=== PATIENT | male | born 1970 | race Caucasian/White ===

== ENCOUNTER 2018-05-24 05:45 | Inpatient (IN) | payer OTHER ==
[2018-05-18 17:07] VITALS: BMI 40.2
--- NOTE | 2018-05-18 18:20 | PREOPHP ---
DATE OF ADMISSION: 05/24/2018 The patient will have surgery with Dr. Francois Lucia on 05/24/2018. REASON FOR CONSULTATION: Consultation requested by Dr. Francois Lucia for medical evaluation and clearance of a 47-year-old gentleman about to undergo surgery. Thank you, Dr. Lucia, for allowing us to participate in the care of this patient. 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 PAST MEDICAL AND SURGICAL HISTORY: His only medical hospitalization actually overnight was for back pain. Other than that, he has had no medical hospitalizations and his other surgeries have included a right inguinal hernia repair and umbilical hernia repair. Other than that, he has had no major medical encounters and has not broken any big bones. ALLERGIES: HE IS NOT ALLERGIC TO ANY MEDICATIONS. MEDICATIONS: Only medicine he had taken was Celebrex which he has stopped prior to his surgery. SOCIAL HISTORY: The patient is , has 2 sons. He does not smoke. Alcohol socially. Does drink coffee. Has no difficulty sleeping at night and is a performance specialist. FAMILY HISTORY: Both parents are alive. Father is 72, mother is 70, both in good health. One sister in good health. There is family history of diabetes. He knows of no heart cancer, hypertension or stroke in the family. REVIEW OF SYSTEMS: HEENT: Periodic headaches. CARDIORESPIRATORY: Denies any chest pain or shortness of breath. GASTROINTESTINAL: No melena or hematemesis; however has had a couple of episodes of diverticulitis. GENITOURINARY: No urgency, frequency. MUSCULOSKELETAL: Positive for back pain. NEUROPSYCHIATRIC: Unremarkable. GENERAL HEALTH: As above. PHYSICAL EXAMINATION: VITAL SIGNS: The patient's blood pressure was 128/82, pulse was 80 and regular, respirations were 18, temperature 99, height of 5 feet, 9 inches and weight 272 pounds. GENERAL: The patient was noted to be a well-developed, well-nourished male, alert and cooperative, in no apparent acute distress, oriented to time, place and person. HEENT: Head was atraumatic. Eyes: Pupils were equal, reactive to light and accommodation. Fundi were benign. Tympanic membranes were unremarkable. Nose was negative. Mouth was unremarkable. Fair oral hygiene was present. NECK: Supple without any rigidity. Trachea was midline. Thyroid was within normal limits. Neck veins were flat. Carotid pulses were equal. No bruits were heard. BACK: Unremarkable. CHEST: Symmetrical. BREASTS AND AXILLARY: Did not reveal any masses. LUNGS: Clear to percussion and auscultation. HEART: PMI was the fifth intercostal space at the midclavicular line. A regular sinus rhythm was noted. No significant murmurs, rubs or gallops being elicited. ABDOMEN: Soft. Good bowel sounds were noted. No significant organomegaly, masses or tenderness. GENITALIA: Normal male external genitalia. RECTAL AND PROSTATIC: Per PCP. EXTREMITIES: Did not reveal any clubbing, edema or cyanosis. Peripheral pulses were physiologic. SKIN: Moist and warm without any eruptions. No gross lymphadenopathy was noted. NEUROLOGIC: Grossly intact. IMPRESSION: 1. Lumbar herniated disk. 2. Metabolic syndrome. 3. Stable health. REVIEW OF LABORATORY AND OTHER DATA: Revealed the following: The patient's chemistry panel revealed normal electrolytes. Random glucose 108. BUN, creatinine, uric acid, calcium, protein, liver function test, magnesium, CBC, UA, PT and PTT were normal. The patient's EKG revealed a right bundle branch block which according to patient has been there as long as he has known. His chest x-ray revealed degenerative joint disease, mild elevation of his left hemidiaphragm, no acute infiltrates were there any acute cardiopulmonary changes being noted. Bladder residual postvoid was 63, which little higher than one would like to see but not terribly so. Dr. Lucia, I see no contraindication to this patient undergoing current proposed surgery under desired form of anesthesia. I feel he is a suitable candidate at this particular point in time and we will be more than happy to follow him up with you during his stay at [facility]. Thank you again, Dr. Lucia, for allowing us to participate in the care of this patient. Dictated By: CHAMP BUENO MD SS/NTS Conf#: [id number] DID#: [id number] CC: FRANCOIS LUCIA MD;*EndCC* MTDD
[2018-05-24] VITALS (18 sets, daily range): BP systolic 95–133; BP diastolic 52–76; PULSE 46–64; RESP 14–20; Ht 175.3 cm; Wt 121.8 kg
[~2018-05-24] VITALS: Ht 175.3 cm; Wt 121.8 kg
[2018-05-24] MEDS ORDERED: LACTATED RINGER'S 1,000 ML IV* SCH (06:00)
[2018-05-24] MEDS ORDERED: CEFAZOLIN 2 GM/50 ML (PMX) 50 ML IVPB ONE (06:00)
--- NOTE | 2018-05-24 06:49 | PREAC ---
Date/Time of Note Date/Time of Note DATE: 05/24/18 TIME: 06:45 Anesthesia Eval and Record Evaluation Time Pre-Procedure Interview DATE: 05/24/18 TIME: 06:45 Age 47 Sex male NPO: 8 hrs Preoperative diagnosis herniated disc left L4-L5 Planned procedure lumbar microdiscectomy L4-L5 left Past Medical History Past Medical History: Includes GI: Morbid obesity, Other (diverticulosis) Surgery & Anesthesia Issues No known issue Meds Anticoagulation: No Beta Radha within 24 hr: No Reason Beta Radha not given: Pt. not on B-Radha Current Medications Lactated Ringer's 1,000 ml @ 25 mls/hr Q24H IV* ; Start 05/24/18 at 06:00; Stop 05/25/18 at 21:59 Meds reviewed: Yes Allergies Coded Allergies: No Known Drug Allergies (Unverified Allergy, Unknown, 05/21/18) Allergies Reviewed: Yes Labs/Studies Labs Reviewed: Reviewed by anesthesiologist Blood Bank Test 05/24/18 06:10 Blood Product Summary Counts test: N/A Studies: ECG (SR RBBB), CXR Pre-procedure Exam Airway: Adequate mouth opening, Adequate thyromental dist Mallampati: Mallampati II Teeth: Normal Lung: Normal Heart: Normal ASA Physical Status ASA physical status: 3 Emergency: None Planned Anesthetic General/MAC: ETT Planned Pain Management Parenteral pain med Pre-operative Attestations Prior to commencing anesthesia and surgery, the patient was re-evaluated, there was verification of: *The patient's identity *The results of appropriate recent lab work and preoperative vital signs *The above evaluation not changing prior to induction *Anesthetic plan, risk benefits, alternative and complications discussed with patient/family; questions answered; patient/family understands, accepts and wishes to proceed. HILDA ORDONEZ MD May 24, 2018 06:49
[2018-05-24] MEDS ORDERED: CELE200C PO (06:55)
[2018-05-24] MEDS ORDERED: PROPOFOL 20 ML ONE ×2 (07:04→07:47)
[2018-05-24] MEDS ORDERED: SUCCINYLCHOLINE CHLORIDE 100 MG/5 ML SYG IV ONE (07:04)
[2018-05-24] MEDS ORDERED: MIDAZOLAM 1 MG/ML 2 ML INJ ONE (07:04)
[2018-05-24] MEDS ORDERED: LIDOCAINE 2% (SDV) 5 ML INJ ONE (07:04)
[2018-05-24] MEDS ORDERED: FENTAnyl 50 MCG/ML VIAL ONE (07:04)
[2018-05-24] MEDS ORDERED: ROCURONIUM 50 MG INJ ONE ×2 (07:04→07:47)
--- NOTE | 2018-05-24 07:05 | HPN ---
Date/Time of Note Date/Time of Note DATE: 05/24/18 TIME: 07:05 Interval H&P Admission Note Pt. seen H&P reviewed: No system changes GUERLINE LUCIA MD May 24, 2018 07:05
[2018-05-24] MEDS ORDERED: PHENYLephrine (100 MCG/ML) 5ML SYG ONE (07:45)
[2018-05-24] MEDS ORDERED: BUPIVACAINE 0.25% (MPF) 30 ML INJ ONE (07:50)
[2018-05-24] MEDS ORDERED: GELATIN SIZE 100 SPONGE ONE (07:50)
[2018-05-24] MEDS ORDERED: CEFAZOLIN 1 GM INJ ONE (07:50)
[2018-05-24] MEDS ORDERED: POLYMYXIN/BACITRACIN 1L IRRIG ONE (07:50)
[2018-05-24] MEDS ORDERED: THROMBIN (BOVINE) 5,000 UNIT VIAL TP ONE (07:50)
[2018-05-24] MEDS ORDERED: DEXAMETHASONE 4 MG/ML 5 ML INJ ONE (07:56)
[2018-05-24] MEDS ORDERED: FAMOTIDINE 20 MG INJ ONE (07:56)
[2018-05-24] MEDS ORDERED: ONDANSETRON 4 MG INJ ONE (07:56)
[2018-05-24] MEDS ORDERED: SURGIFOAM POWDER 1 GM KIT ONE (08:29)
[2018-05-24] MEDS ORDERED: DIPHENHYDRAMINE 50 MG INJ IV PRN (08:30)
[2018-05-24] MEDS ORDERED: LABETALOL HCL 20MG INJ IV PRN (08:30)
[2018-05-24] MEDS ORDERED: OXYCODONE/ACETAMINOPHEN (5/325) TAB PO PRN ×4 (08:30→09:30)
[2018-05-24] MEDS ORDERED: hydrALAzine 20 MG INJ IV PRN (08:30)
[2018-05-24] MEDS ORDERED: ONDANSETRON 4 MG INJ IV PRN ×2 (08:30→09:30)
[2018-05-24] MEDS ORDERED: FENTAnyl 50 MCG/ML VIAL IV PRN ×3 (08:30)
[2018-05-24] MEDS ORDERED: MEPERIDINE 25 MG INJ IV PRN (08:30)
[2018-05-24] MEDS ORDERED: HYDROmorphONE 1 MG/5 ML IV SYRINGE IV PRN ×3 (08:30)
[2018-05-24] MEDS ORDERED: PROCHLORPERAZINE 10 MG INJ IV PRN (08:30)
[2018-05-24] MEDS ORDERED: HYDROmorphONE 2 MG/ML SYG ONE (08:42)
--- NOTE | 2018-05-24 09:15 | PAC ---
Date/Time of Note Date/Time of Note DATE: 05/24/18 TIME: 09:14 Post-Anesthesia Notes Post-Anesthesia Note Last documented vital signs Vital Signs Date Temp Pulse Resp B/P (MAP) Pulse Ox O2 O2 Flow FiO2 Time Delivery Rate 05/24/18 98.1 64 18 133/76 96 07:11 (95) Activity: WNL Respiratory function: WNL Cardiovascular function: WNL Mental status: Baseline Pain reasonably controlled: Yes Hydration appropriate: Yes Nausea/Vomiting absent: Yes Comments BP: 104/50 HR: 60 RR: 15 T: 98.4 SaO2: 98% HILDA ORDONEZ MD May 24, 2018 09:15
--- NOTE | 2018-05-24 09:28 | SIPON ---
Date/Time of Note Date/Time of Note DATE: 05/24/18 TIME: 09:25 Operative Report Preoperative Diagnosis HNP L4-5 left Postoperative Diagnosis same Operation/Procedure Performed Left hemilaminotomy L4 Microdiscectomy L4-5 on the left Medial facetectomy and foraminotomy L4-5 on the left Cosmetic wound closure (2.6 cm) Lateral localizing lumbar radiographs (2) Intraoperative nerve monitoring (2-1/2 hours) Surgeon see signature line assistant golf course superintendent Vane Go PA-C Anesthesia: general Estimated blood loss: 10 - 50 ml's Transfusion Required none Specimen Disk L4-5 Grafts/Implants none Complications none GUERLINE LUCIA MD May 24, 2018 09:28
--- NOTE | 2018-05-24 11:40 | OPR ---
DATE OF OPERATION: 05/24/2018 PREOPERATIVE DIAGNOSIS: Herniated disk, L4-L5 on the left. POSTOPERATIVE DIAGNOSIS: Herniated disk, L4-5 on the left. OPERATION PERFORMED: 1. Left hemilaminotomy, L4. 2. Microdiskectomy, L4-5 on the left. 3. Medial facetectomy and foraminotomy, L4-L5 on the left. 4. Cosmetic wound closure (2.6 cm). 5. Lateral localized lumbar radiographs (2). 6. Intraoperative nerve monitoring (2-1/2 hours). SURGEON: Francois Campuzano MD STIFF NECK LOADER: Patricia Go PA-C ANESTHESIA: Endotracheal. ANESTHESIOLOGIST: Barbara Brown MD ESTIMATED BLOOD LOSS: 15 mL, none replaced. DRAINS: No drains employed. COMPLICATIONS: None. PERTINENT HISTORY AND PHYSICAL: This is a 47-year-old male who sustained an injury to his back in [employer] course of employment on 11/25/2016. He has had extensive care since that time, has remained sympto matic with pain in his low back and left lower extremity which has been unrelieved by conservative ma nagement. He has undergone a number of diagnostic studies which demonstrated a left-sided foraminal herniation L4-L5. Treatment options were discussed with the patient, who elected to proceed with kathya baker. OPERATIVE FINDINGS AT SURGERY: A small left-sided herniation of the L4-5 disk was confirmed. The john vaughn intraoperative nerve monitoring revealed a decrease in the left L4 potential of 40%, the right L4 potential was down 10%, the left L5 potential was down 50%, the right L5 potential was down 40%, the left S1 potential was down 10%. At the completion of surgery everything came back to normal exce pt the left L4 and L5 potentials were down 10% from normal. OPERATIVE PROCEDURE: With the patient in supine position after satisfactory induction of general end otracheal anesthesia by Dr. Brown, the patient was turned to the prone kneeling position over the [facility] frame. All pressure points were carefully padded. Back was prepped and draped in usual sterile fashion. Athrombic pumps were applied to the legs below the knees to prevent venous stasis during t he procedure. Two spinal needles were placed next to what was felt to be the L4 and L5 spinous proce sses, lateral radiogram was taken, which confirmed anatomic localization. A 2.6 cm incision was then carried out midline over the spinous process of L4 after skin was infiltrated with 0.25% Marcaine wi thout epinephrine for postoperative analgesia. Superficial retractors were placed and hemostasis sec ured with electrocautery. Throughout the procedure, copious amounts of antibacterial irrigating solu tion used to periodically irrigate the wound. The fascia was incised in midline with a hot knife and unilateral subperiosteal dissection carried out at L4 on the left. Deep retractors were placed and deep hemostasis secured with electrocautery. A second intraoperative radiograph was taken with deep retractor at what was felt to be the L4-5 interspace and was confirmed with second x-ray. A left hem ilaminotomy L4 was then carried out using Leksell rongeur, Kerrison punches and curettes. The ligame ntum flavum was excised with sharp dissection. The operating microscope was then moved into place. A medial facetectomy and foraminotomy was then accomplished using small hand osteotome and malletDickson punches and curettes. The L5 root was then mobilized medially and protected with Wilmer ner ve retractor using microdissection technique. This revealed a herniation of the L4-5 disk on the lef t. A 15 blade knife was used to cut a rectangular window in the annulus and posterior longitudinal l igament and multiple degenerative disk fragments were harvested with pituitary rongeurs and sent to l aboratory for pathologic study. Additional fragments were harvested using Tiburcio curettes. A thoro ugh search of the floor of the canal was made with an arthroscopic probe. No additional fragments we re encountered. The epidural hemostasis was secured with bipolar electrocautery on a low setting. T he anesthesiologist was then asked to perform a Valsalva maneuver to 40 mmHg. No spinal fluid leak w as noted. The wound was then closed in layers over 2 medium Hemovac drains, one below the fascia, on e above the fascia using #1 Vicryl [id number] approximating sutures in deep paralumbar musculatu re and deep fascia of back, 2-0 Vicryl subcutaneous approximating sutures in subcu tissue, and a 4-0 Vicryl subcuticular cosmetic closing suture on the skin. Dermabond and sterile compressive dressings were applied. The patient having tolerated the procedure well, was then turned to the supine positi on onto his bed and extubated by Dr. Brown. He was transported to the recovery room in satisfactory c ondition. At the conclusion of procedure, sponge, instrument, and needle counts were all correct. NEED FOR VINYL CUTTER: During this spinal surgical procedure, my sales assistant was used to retract and protect the spinal nerves and dural sac. My sales assistant also employed the suction catheters to kev jeanine blood from the surgical field to improve visualization of the neural structures. The sales assistant was medically necessary to facilitate the completion of the surgery in a safe and expeditious manner. [facility] [place] regulations, as well as hospital bylaws, preclude the use of non-licensed health care personnel such as operating room technicians, to perform these functions. Throughout the procedure, neural monitoring was carried out by Budge including EMG, SSEP a nd MEP monitoring of the L3, L4, L5 and S1 nerve roots bilaterally along with spinal cord potentials. These were interpreted in real time by Dr. Albert Kelly. Dictated By: FRANCOIS CAMPUZANO MD TM/NTS Conf#: [id number] DID#: [id number] CC: PATRICIA DALTON; FRANCOIS CAMPUZANO MD;*End*
== END 2018-05-24 11:40 | disposition home or self-care (01) | DRG 520 ==
LOC: REC 05:45
PROVIDERS: ADMIT Orthopaedic Surgery; ATTEND Orthopaedic Surgery
PROC: 0SB20ZZ Excision of Lumbar Vertebral Disc, Open Approach (ICD-10-PCS; principal; 2018-05-24 07:00)
DX: M51.26 Other intervertebral disc displacement, lumbar region (principal); E88.81 Metabolic syndrome and other insulin resistance
CPT/HCPCS: 72020; 86850; 86900; 86901; 86920; 88304; 97161; J0690; J1100; J1170; J2250; J2370; J2405; J3010; J7120